=== PATIENT | male | born 1965 | race Caucasian/White ===

== ENCOUNTER 2019-01-09 06:51 | Day surgery (SDC) | payer OTHER ==
[~2019-01-09] VITALS: Ht 165.1 cm; Wt 89.9 kg
[2019-01-09 07:28] VITALS: BP 118/79; PULSE 77; TEMP 98.3
[2019-01-09] MEDS ORDERED: ATIVAN 1MG T1 MG/TAB PO (08:09)
[2019-01-09] MEDS ORDERED: LEXAPRO 5MG5 MG PO (08:10)
[2019-01-09] MEDS ORDERED: LIPITOR 40MG TA40 MG PO (08:10)
[2019-01-09] MEDS ORDERED: ZANTAC 150MG T150 MG PO (08:11)
[2019-01-09 08:55] VITALS: BP 108/75; PULSE 70; TEMP 97.6
[2019-01-09 09:10] VITALS: BP 112/78; PULSE 63
[2019-01-09 09:25] VITALS: BP 110/77; PULSE 64
--- NOTE | 2019-01-09 09:49 | NUR ---
0855 PATIENT TO BAY 3 PER CART ACCOMPANIED BY ENDO NURSE. PATIENT AMBULATES TO CHAIR WITH STANDBY ASSIST WITH STEADY GAIT. IV INFUSING. DENIES PAIN OR NAUSEA. 0910 PATIENT EATS MUFFIN AND DRINKS CRANBERRY JUICE WITHOUT PROBLEMS. 0915 DR [place] IN ROOM AND SPEAKS WITH PATIENT AND . 09 PATIENT DENIES NAUSEA AND PAIN. PATIENT GIVEN WRITTEN AND VERBAL DISCHARGE INSTRUCTIONS. VOICED UNDERSTANDING. PATIENT AMBULATES OUT TO PRIVATE CAR WITHOUT PROBLEMS.
== END 2019-01-09 09:30 | disposition home or self-care (01) ==
LOC: SDCO 06:51
DX: K21.9 Gastro-esophageal reflux disease without esophagitis (principal); K44.9 Diaphragmatic hernia without obstruction or gangrene; K29.70 Gastritis, unspecified, without bleeding; K29.80 Duodenitis without bleeding; K26.9 Duodenal ulcer, unspecified as acute or chronic, without hemorrhage or perforation; Z79.899 Other long term (current) drug therapy; J44.9 Chronic obstructive pulmonary disease, unspecified; G62.0 Drug-induced polyneuropathy; C37 Malignant neoplasm of thymus; F41.9 Anxiety disorder, unspecified; F32.9 Major depressive disorder, single episode, unspecified; Z87.891 Personal history of nicotine dependence; M34.1 CR(E)ST syndrome; R20.2 Paresthesia of skin
CPT/HCPCS: J2704; J7120

== ENCOUNTER → 2019-01-16 | Outpatient (CLI) | payer OTHER ==
[~2019-01-16] MED LIST: ATIVAN 1MG T1 MG/TAB PO; LEXAPRO 5MG5 MG PO; LIPITOR 40MG TA40 MG PO; ZANTAC 150MG T150 MG PO
== END ==
LOC: COL.RAD 07:24
DX: K21.9 Gastro-esophageal reflux disease without esophagitis (principal)
CPT/HCPCS: A9541